=== PATIENT | female | born 1955 | race African-American/Black ===

== ENCOUNTER 2018-11-06 09:02 | Emergency (ER) | payer OTHER ==
[~2018-11-06] VITALS: Ht 170.2 cm; Wt 127.0 kg
[2018-11-06 09:02] VITALS: BP 198/83
[2018-11-06] MEDS ORDERED: NORVASC5 MG PO (09:14)
[2018-11-06] MEDS ORDERED: XANAX 0.5 MG0.5 MG PO (09:14)
[2018-11-06] MEDS ORDERED: NORFLEX100 MG PO (10:38)
[2018-11-06] MEDS ORDERED: NAPROSYN500 MG PO (10:38)
== END 2018-11-06 10:54 | disposition home or self-care (01) ==
LOC: ER 09:02
DX: S13.4XXA Sprain of ligaments of cervical spine, initial encounter (principal); I10 Essential (primary) hypertension; J45.909 Unspecified asthma, uncomplicated; Z88.8 Allergy status to other drugs, medicaments and biological substances; V89.2XXA Person injured in unspecified motor-vehicle accident, traffic, initial encounter; Y92.89 Other specified places as the place of occurrence of the external cause; Y93.89 Activity, other specified; Y99.8 Other external cause status